=== PATIENT | male | born 1990 | race Two or more races ===

== ENCOUNTER 2024-01-09 02:44 | Emergency (ER) | payer OTHER ==
[~2024-01-09] VITALS: Ht 167.6 cm; Wt 90.7 kg
[2024-01-09 02:53] VITALS: BP 134/87; PULSE 73; RESP 16; O2SAT 97
[2024-01-09] MEDS: TETRACAINE HCL 0.5% OPTH(EYE) SOLN 4ML RIGHTEYE ONE (03:28)
[2024-01-09] MEDS: FLUORESCEIN SOD OPTH TEST STRIP RIGHTEYE ONE (03:28)
[2024-01-09] MEDS: ERYTHROMY OPTH OINT 5mg/gm 1gm or 3.5gm tube OP ONE (03:50)
== END 2024-01-09 04:20 | disposition home or self-care (01) ==
LOC: ER 02:44
DX: T26.01XA Burn of right eyelid and periocular area, initial encounter (principal); T15.01XA Foreign body in cornea, right eye, initial encounter; W44.B0XA Plastic object unspecified, entering into or through a natural orifice, initial encounter; X08.8XXA Exposure to other specified smoke, fire and flames, initial encounter; Y93.89 Activity, other specified; Y92.89 Other specified places as the place of occurrence of the external cause; Y99.8 Other external cause status